=== PATIENT | male | born 1955 | race African-American/Black ===

== ENCOUNTER 2019-04-11 07:55 | Emergency (ER) | payer OTHER ==
[~2019-04-11] VITALS: Ht 180.3 cm; Wt 73.0 kg
[~2019-04-11 07:55] MED LIST: AMOX1TAB61 PO; ATOR10TA9 PO; FOSI40TA5 PO; GEMF600T8 PO; INDO50CA15 PO; INSU100I28 SQ-INSULIN; LIPA1CAP61 PO; METO25TA35 PO; NIAC500T9 PO; NIFE10CA49 PO; OMEP-110 PO; OXYC-307 PO; POTA20TA91 PO; SULF1TAB24 PO
[2019-04-11 07:59] VITALS: BP 128/108
[2019-04-11 08:48] LABS: BASOPHILS # (AUTO) 0.01 x10^3/uL (0-0.1); BASOPHILS % (AUTO) 0 % (0-1); EOSINOPHILS # (AUTO) 0.07 x10^3/uL (0-0.4); EOSINOPHILS % (AUTO) 2 % (1-7); LYMPHOCYTES # (AUTO) 0.65 x10^3/uL (1-3.4); LYMPHOCYTES % (AUTO) 16 % (22-44); MD NO; MEAN CORPUSCULAR HEMOGLOBIN 33.8 pg (27.5-34.5); MEAN CORPUSCULAR HGB CONC 33.2 g/dL (33.2-36.2); MEAN CORPUSCULAR VOLUME 101.8 fL (81-97); MEAN PLATELET VOLUME 9.4 fL (7.4-10.4); MONOCYTES # (AUTO) 0.23 x10^3/uL (0.2-0.8); MONOCYTES % (AUTO) 6 % (2-9); NEUTROPHILS # (AUTO) 3.03 x10^3/uL (1.8-6.8); NEUTROPHILS % (AUTO) 76 % (42-75); PLATELET COUNT 158 x10^3/uL (130-400); RED BLOOD COUNT 3.67 x10^6/uL (4.38-5.82); RED CELL DISTRIBUTION WIDTH 13.6 % (9.4-14.8)
[2019-04-11 08:58] LABS: ALBUMIN 3.2 g/dL (3.4-5.0); ANION GAP 10 mmol/L (5-15); CALCIUM 8.6 mg/dL (8.5-10.1); CHLORIDE 104 mmol/L (98-107); CREATININE 0.82 mg/dL (0.7-1.3)
== END 2019-04-11 09:44 | disposition home or self-care (01) ==
LOC: ED 09:20
DX: L42 Pityriasis rosea (principal); I10 Essential (primary) hypertension; E11.10 Type 2 diabetes mellitus with ketoacidosis without coma
CPT/HCPCS: 36415; 80048; 82040; 85025; 99283